=== PATIENT | male | born 1980 | race Caucasian/White ===

== ENCOUNTER 2022-05-27 22:18 | Emergency (ER) | payer OTHER ==
[~2022-05-27] VITALS: Ht 180.3 cm; Wt 108.9 kg
[2022-05-27 23:50] LABS: *BLOOD, URINE NEGATIVE (NEGATIVE); *CLARITY,URINE CLEAR (CLEAR); *COLOR,URINE YELLOW (YELLOW); *KETONES,URINE NEGATIVE (NEGATIVE); LEUKOCYTE ESTERASE ,URINE NEGATIVE (NEGATIVE); NITRITE, URINE NEGATIVE (NEGATIVE); PH,URINE 5.5 (5.0-8.0); UGLUCOSE NEGATIVE (NEGATIVE)
[2022-05-27 23:55] LABS: *BILIRUBIN,URIN 1+ (NEGATIVE)
[2022-05-28 00:09] LABS: *AMPHETAMINE, URINE POSITIVE (NEGATIVE); *CANNABINOID, URINE NEGATIVE (NEGATIVE); *COCCAINE, URINE NEGATIVE (NEGATIVE); *OPIATE, URINE NEGATIVE (NEGATIVE); *PHENCYCLIDINE SCREEN,URINE NEGATIVE (NEGATIVE)
--- NOTE | 2022-05-28 03:03 | NUR ---
Patient able to walk to restroom with steady gait. NAD noted
[2022-05-28 03:39] LABS: HEMATOCRIT 36.5 % (36.7-47.1); MEAN CORPUSCULAR HEMOGLOBIN 25.9 uug (23.8-33.4); MEAN CORPUSCULAR VOLUME 78.4 fL (73.0-96.2); PLATELET COUNT (AUTO) 264 K/uL (152-348)
[2022-05-28 03:47] LABS: CREATININE 0.8 mg/dL (0.6-1.3); POTASSIUM 3.1 mmol/L (3.5-5.1)
[2022-05-28 03:59] LABS: BILIRUBIN,DIRECT 0.2 mg/dL (0.0-0.2); BILIRUBIN,TOTAL 0.7 mg/dL (0.2-1.0); TOTAL PROTEIN, SERUM 7.1 g/dL (6.4-8.2)
[2022-05-28] MEDS ORDERED: POTASSIUM BICARBONATE/CIT AC 25 MEQ TABLET.EFF PO ONE (04:30)
[2022-05-28] MEDS ORDERED: THIAMINE HCL 100 MG TABLET PO ONE (04:30)
[2022-05-28] MEDS ORDERED: POTASSIUM BICARBONATE/CIT AC 25 MEQ TABLET.EFF ONE (04:31)
[2022-05-28] MEDS ORDERED: THIAMINE HCL 100 MG TABLET ONE (04:31)
--- NOTE | 2022-05-28 06:42 | NUR ---
called reinsurance accountant Lea, was told to call Art at [phone] for psych consult
--- NOTE | 2022-05-28 06:59 | NUR ---
hand off report to Laisha JORDAN
--- NOTE | 2022-05-28 08:35 | NUR ---
PATIENT WISHES TO BE DISCHARGE AND FOLLOW UP VOLUNTARILY FOR CARE. PT REQUESTED FOR A VOUCHER TO SPECIFIC ADDRESS. RN TECHNOLOGY INSTRUCTOR NOTIFIED. DISCHARGE INSTRUCTIONS GIVEN BY . VOUCHER OBTAINED FOR PT . DISCHARGED IN STABLE CONDITION.
[2022-05-28 08:37] VITALS: BP 128/78
== END 2022-05-28 08:38 | disposition home or self-care (01) ==
LOC: ER 22:22
DX: R60.0 Localized edema (principal); F10.129 Alcohol abuse with intoxication, unspecified; F15.10 Other stimulant abuse, uncomplicated; Y90.6 Blood alcohol level of 120-199 mg/100 ml; E66.9 Obesity, unspecified; Z68.33 Body mass index [BMI] 33.0-33.9, adult; E87.6 Hypokalemia; Z20.822 Contact with and (suspected) exposure to COVID-19; Z82.49 Family history of ischemic heart disease and other diseases of the circulatory system; R44.0 Auditory hallucinations; R94.31 Abnormal electrocardiogram [ECG] [EKG]
CPT/HCPCS: 36415; 85025; 85730; 93005; A4663; G0480

== ENCOUNTER 2022-11-21 20:11 | Emergency (ER) | payer OTHER ==
[~2022-11-21] VITALS: Ht 180.3 cm; Wt 124.7 kg
[2022-11-21 20:59] VITALS: BP 123/85
== END 2022-11-21 21:19 | disposition home or self-care (01) ==
LOC: ER 20:11
DX: R60.0 Localized edema (principal); R00.0 Tachycardia, unspecified; Z90.49 Acquired absence of other specified parts of digestive tract; F31.9 Bipolar disorder, unspecified; F20.9 Schizophrenia, unspecified
CPT/HCPCS: A4663